=== PATIENT | male | born 1960 | race American Indian/Alaskan Native ===

== ENCOUNTER 2016-09-23 12:47 | Day surgery (SDC) | payer MEDICARE ==
[2016-09-23] MEDS ORDERED: NACL BACTERIOSTATIC INFILTRATI ONE (14:22)
--- NOTE | 2016-09-23 14:32 | Anesthesia Day of Surgery ---
Anesthesia Day of Surgery - Day of Surgery Patient Examined: Yes Patient H&P Reviewed: Yes Patient is NPO: Yes
--- NOTE | 2016-09-23 14:32 | Anesthesia Consultation ---
Anesthesia Consult and Med Hx Date of service: 09/23/16 - Airway Anesthetic Teeth Evaluation: Good ROM Head & Neck: Adequate Mental/Hyoid Distance: Adequate Mallampati Class: Class II Intubation Access Assessment: Probably Good - Pulmonary Exam CTA: Yes - Cardiac Exam Cardiac Exam: RRR - Pre-Operative Health Status ASA Pre-Surgery Classification: ASA2 Proposed Anesthetic Plan: General - Pulmonary Hx Smoking: No Hx Sleep Apnea: No - Cardiovascular System Hx Hypertension: Yes (FOR 7 YRS, DR. SIMPSON- PCP) - Central Nervous System Hx Psychiatric Problems: Yes - Other Systems Hx Alcohol Use: Yes (BEER AND LIQUOR 1-2 DRINKS DAILY) Hx Cancer: No
[2016-09-23 14:59] LABS: Hematocrit 39.9 % (35.5-45.6); Hemoglobin 12.9 gm/dl (11.8-15.2); Mean Corpuscular HGB Conc 32 % (32-34); Mean Corpuscular Hemoglobin 29 pg (28-32); Mean Corpuscular Volume 88 fl (84-94); Platelet Count 215 K/mm3 (140-440); Red Blood Count 4.54 M/mm3 (3.65-5.03); Red Cell Distribution Width 13.3 % (13.2-15.2)
[2016-09-23] MEDS ORDERED: ANCEF/STERILE WATER 2 GM/20 ML IV NR (15:00)
[2016-09-23] MEDS ORDERED: VERSED IV NR (15:00)
[2016-09-23] MEDS ORDERED: NACL 0.9% 1000 ML 1,000 ML IV SCH (15:00)
[2016-09-23] MEDS ORDERED: PEPCID PO NR (15:00)
[2016-09-23 15:15] LABS: Alanine Aminotransferase 22 units/L (7-56); Albumin 4.2 g/dL (3.9-5); Albumin/Globulin Ratio 1.3 %; Alkaline Phosphatase 47 units/L (35-129); Anion Gap 18 mmol/L; BUN/Creatinine Ratio 14.44; Bilirubin,Total < 0.2 mg/dL (0.1-1.2); Blood Urea Nitrogen 13 mg/dL (9-20); Calcium 9.1 mg/dL (8.4-10.2); Carbon Dioxide 28 mmol/L (22-30); Chloride 98.8 mmol/L (98-107); Glucose 80 mg/dL (75-100); Potassium 3.8 mmol/L (3.6-5.0); Sodium 141 mmol/L (137-145); Total Protein 7.4 g/dL (6.3-8.2)
[2016-09-23 15:50] LABS: Basophils % (Manual) 0 % (0.0-1.8); Blastocytes % (Manual) 0 %; RBC Morphology Normal
[2016-09-23] MEDS ORDERED: DIPRIVAN 10 MG/ML IV ONE (15:50)
[2016-09-23 15:51] LABS: Diff Status Complete; Platelet Estimate Consistent w Auto
[2016-09-23] MEDS ORDERED: SUBLIMAZE ONE (15:51)
[2016-09-23] MEDS ORDERED: NACL 0.9% IR ONE (16:19)
[2016-09-23] MEDS ORDERED: MARCAINE 0.5% INFILTRATI ONE (16:19)
[2016-09-23] MEDS ORDERED: XYLOCAINE 1%/ EPI 1:100,000 INFILTRATI ONE (16:19)
[2016-09-23] MEDS ORDERED: ZOFRAN ONE (16:20)
[2016-09-23] MEDS ORDERED: XYLOCAINE MPF 2% ONE (16:20)
--- NOTE | 2016-09-23 16:47 | Discharge Summary ---
Short Stay Discharge Plan Diet: regular Wound: per your surgeon's advice Follow up with: TANMAY SIMPSON MD [Primary Care Provider] - 7 Days
[2016-09-23 18:12] VITALS: BP 112/68
--- NOTE | 2016-10-05 14:52 | Operative Report ---
PREOPERATIVE DIAGNOSES: Two masses in chest wall anteriorly located, the larger one was about 4 x 4 x 4 cm and another one about 2 x 2 cm. This looked like a cystic lesions to me. They were giving him some pain. There was no evidence of any inflammatory signs around them. DESCRIPTION OF PROCEDURE: So this was done under general anesthesia. I started with the larger one. With a spindle shaped incision across, I was able to remove the mass in toto. The same thing to the lower one and these were closed with a 4-0 Vicryl for the skin area. The patient was then transferred to the recovery room in good condition. JOB# [id number]/KASIA
== END 2016-09-23 18:02 | disposition home or self-care (01) ==
LOC: OR 12:47
PROVIDERS: ATTEND Surgery
DX: L72.0 Epidermal cyst (principal); I10 Essential (primary) hypertension; Z72.89 Other problems related to lifestyle; Z79.899 Other long term (current) drug therapy
CPT/HCPCS: 11402; 11404; 36415; 80053; 82962; 85007; 85025; 88304; J0690; J2250; J2405; J2704; J3010; J7030